=== PATIENT | female | born 1980 | race Caucasian/White ===

== ENCOUNTER 2024-07-27 06:33 | Day surgery (SDC) | payer BC ==
[2024-07-26 09:15] VITALS: BMI 32.3
[2024-07-27] MEDS ORDERED: Bupivacaine HCl 0.5%/Epinephrine 1:200,000/PF 30 ml Vial ONE (07:21)
[2024-07-27] MEDS ORDERED: CEFAZOLIN 2 GM VIAL ONE (07:21)
[2024-07-27] MEDS ORDERED: fentaNYL 50 mcg/mL 1 mL Vial ONE (07:48)
[2024-07-27] MEDS ORDERED: PROPOFOL 20 ML ONE ×2 (07:48)
[2024-07-27] MEDS ORDERED: Dexamethasone 20 MG/5 ML VIAL ONE (07:59)
[2024-07-27] MEDS ORDERED: Ondansetron PF 4 MG/2 ML Vial ONE (07:59)
[2024-07-27] MEDS ORDERED: Promethazine HCl 25 MG/ML VIAL ONE (08:01)
[2024-07-27] MEDS ORDERED: Midazolam HCl 2 mg/2 ml Vial ONE (08:37)
[2024-07-27] MEDS ORDERED: Ketorolac Tromethamine 30 MG (1 mL) VIAL ONE (08:46)
[2024-07-27] MEDS ORDERED: PHENYLEPHRINE-NS 100 MCG/ML 10 ML SYRINGE ONE (09:06)
[2024-07-27] MEDS ORDERED: HYDROcodone/Acetaminophen 5/325 mg Tablet ONE (10:16)
== END 2024-07-27 10:44 | disposition home or self-care (01) ==
LOC: CSHSDC 06:33
PROVIDERS: ATTEND Podiatrist Foot & Ankle Surgery
PROC: 0QSN04Z Reposition Right Metatarsal with Internal Fixation Device, Open Approach (ICD-10-PCS; principal; 2024-07-27)
DX: M21.611 Bunion of right foot (principal); M71.8 Other specified bursopathies; Z87.59 Personal history of other complications of pregnancy, childbirth and the puerperium; Z88.1 Allergy status to other antibiotic agents; Z79.899 Other long term (current) drug therapy
CPT/HCPCS: C1713; J1100; J1885; J2250; J2405; J2550; J2704; J3010

== ENCOUNTER 2025-07-31 06:08 | Day surgery (SDC) | payer BC ==
[2025-07-29 08:27] VITALS: BMI 30.8
[2025-07-29 09:08] LABS: Hematocrit 41.5 % (34.9-44.5); Hemoglobin 13.8 g/dL (12.0-15.5); Mean Corpuscular Hemoglobin 30.8 pg (27.0-33.0); Mean Corpuscular Volume 92.6 fL (81.6-98.3); Platelet Count 282 10x3/uL (150-450); Red Blood Cell (RBC) Count 4.48 10x6/uL (3.90-5.03); White Blood Cell (WBC) Count 7.59 10x3/uL (3.5-10.5)
[2025-07-29 09:33] LABS: BHCG - Serum Negative (NEGATIVE); Pregs Control Background? CLEAR/WHITE (CLR/WHITE); Pregs Control Bar Appear? YES (CONTROL BAR)
[2025-07-31] MEDS ORDERED: Gabapentin 300 MG CAP ONE (06:22)
[2025-07-31] MEDS ORDERED: metroNIDAZOLE 500 MG (100 mL) BAG ONE (06:22)
[2025-07-31] MEDS ORDERED: Famotidine/PF 20 mg/2ml Vial ONE (06:23)
[2025-07-31] MEDS ORDERED: Sevoflurane 250 ML INH ANEST BOTTLE ONE (06:50)
[2025-07-31] MEDS ORDERED: Bupivacaine HCl 0.5%/Epinephrine 1:200,000/PF 30 ml Vial ONE (06:50)
[2025-07-31] MEDS ORDERED: PROPOFOL 40 ML ONE (07:05)
[2025-07-31] MEDS ORDERED: Ondansetron PF 4 MG/2 ML Vial ONE ×2 (07:05→09:43)
[2025-07-31] MEDS ORDERED: Lidocaine 2% PF 100 mg/5 ml Syringe ONE (07:05)
[2025-07-31] MEDS ORDERED: Ketorolac Tromethamine 30 MG (1 mL) VIAL ONE (07:05)
[2025-07-31] MEDS ORDERED: SUGAMMADEX SODIUM 200 MG/2 ML VIAL ONE (07:05)
[2025-07-31] MEDS ORDERED: Phenylephrine 40 MG/NS 250 ML 250 ML ONE (07:12)
[2025-07-31] MEDS ORDERED: HYDROmorphone 0.5 MG/0.5 ML SYRINGE ONE (07:12)
[2025-07-31] MEDS ORDERED: CEFAZOLIN 2 GM VIAL ONE (07:20)
[2025-07-31] MEDS ORDERED: HYDROcodone/Acetaminophen 5/325 mg Tablet ONE (10:18)
== END 2025-07-31 11:25 | disposition home or self-care (01) ==
LOC: CSHSDC 06:08
PROVIDERS: ATTEND Obstetrics & Gynecology
DX: N73.6 Female pelvic peritoneal adhesions (postinfective) (principal); N87.0 Mild cervical dysplasia; Z98.51 Tubal ligation status; Z88.1 Allergy status to other antibiotic agents
CPT/HCPCS: 84703; 85027; 86850; 86900; 86901; 88307; J1100; J1171; J1308; J1885; J2003; J2250; J2405; J2550; J2704; J3010; S2900